=== PATIENT | female | born 1950 | race Caucasian/White ===

== ENCOUNTER 2024-02-12 15:35 | Emergency (ER) | payer OTHER, SELFPAY ==
[2024-02-12 15:38] VITALS: BP 163/93
[2024-02-12 16:17] LABS: % Basophils 0.5 % (0-2); % Eosinophils 1.5 % (0-6); % Immature Granulocytes 0.4 % (0-0.5); % Lymphocytes 17.4 % (20.5-51.1); % Neutrophils 74.2 % (42.2-75.2); Absolute Basophils 0.1 10^3/uL (0-0.2); Absolute Eosinophils 0.1 10^3/uL (0-0.7); Absolute Lymphocytes 1.7 10^3/uL (1.2-3.4); Absolute Monocytes 0.6 10^3/uL (0.1-0.6); Absolute Neutrophils 7.1 10^3/uL (1.4-6.5); Hematocrit 39.3 % (37.0-47.0); Mean Corp Hgb Conc. 33.1 g/dL (33.0-37.0); Mean Corpuscular Hgb 28.8 pg (27.0-31.0); Mean Corpuscular Volume 86.9 fL (81.0-99.0); Mean Platelet Volume 9.7 fL (7.4-10.4); Nucleated Red Blood Cells % 0 %; Platelet Count 283 10^3/uL (130-400); Red Blood Cell Count 4.52 10^6/uL (4.20-5.40); Red Cell Dist. Width 13.6 % (11.5-14.5); White Blood Cell Count 9.6 10^3/uL (4.8-10.8)
[2024-02-12 16:49] LABS: ALT (SGPT) 20 U/L (0-35); AST (SGOT) 25 U/L (14-36); Albumin 4.1 g/dl (3.5-5.0); Alkaline Phosphatase 136 U/L (38-126); Blood Urea Nitrogen 13 mg/dl (7-17); Calcium 9.2 mg/dl (8.4-10.2); Carbon Dioxide 24 mmol/L (22-30); Chloride 104 mmol/L (98-107); Glucose 109 mg/dl (70-99); Potassium 4.6 mmol/L (3.5-5.1); Sodium 141 mmol/L (135-145); Total Bilirubin 0.3 mg/dl (0.2-1.3); Total Protein 7.1 g/dl (6.3-8.2); eGFR > 60.00
--- NOTE | 2024-02-12 17:15 | ED.GENMED ---
History of Present Illness
General
Chief Complaint: Weakness
Time Seen by Provider: 02/12/24 17:14
History of Present Illness
History of Present Illness:
TIME OF INITIAL ENCOUNTER: 5:25 PM
HPI: The patient had abrupt onset of slurred speech and gait dysfunction that started yesterday afternoon. She went to [facility]. This is about the fifth time this happened to her this year. 'They never find anything'. She was kept for
observation overnight and then earlier today 'they kicked me out'. is very upset that she was released from the hospital without any clear answers. She could not even walk when she was being discharged. very upset with the care at
[facility].
EXAM:
GENERAL: Well appearing in no distress
HEENT: Moist oral mucosa
CARDIOVASCULAR: No murmurs, irregular heart rate, regular rhythm, No chest wall tenderness
PULMONARY: No respiratory distress, breath sounds are clear and equal
ABDOMEN: Soft with no peritoneal signs, no tenderness
NEUROLOGIC: Fair strength all extremities, some questionable mild right upper extremity coordination deficit with finger-nose testing, normal [id number] testing, normal lower extremity strength, ambulation was tested with a walker and she walked
without my assistance
PSYCHIATRIC: Appropriate mental status, normal insight and judgement
EXTREMITIES: Nontender, no edema, moves all extremities equally
SKIN: No rash, no lesions
NUMBER AND COMPLEXITY OF PROBLEMS ADDRESSED AT THE ENCOUNTER
� Chronic conditions affecting care: Atrial fibrillation, high blood pressure, hyperlipidemia
� Acute Exacerbation and/or Progression of Chronic Illness: This is an acute but recurring problem
� Differential Diagnosis includes: TIA, CVA,
AMOUNT AND/OR COMPLEXITY OF DATA TO BE REVIEWED AND ANALYZED
� I performed an independent evaluation of and my interpretation is:
EKG: A-fib 90, normal axis, nonspecific ST abnormality
CT: Brain CT personally reviewed and agree with radiologist interpretation
X-rays:
Laboratory Studies: CBC and chemistries unremarkable
Other:
� Review of other/old records: I reviewed records with the nurse practitioner at [facility]
� Clinical information was obtained by an independent historian: I spoke to significant other
� Prescriptions/Medications Considered but not given:
� Further testing considered but not performed:
RISK OF COMPLICATIONS AND/OR MORBIDITY OR MORTALITY OF PATIENT MANAGEMENT
� Social determinants of health affecting care: Lives at home
� Discussion with other providers: See below
� Escalation of care including admission/observation vs risk of discharge considered:
ANY OTHER UPDATES:
6:00 PM: I spoke to a nurse practitioner in the emergency department at [facility]. She tells me that the patient had an unremarkable MRI of the brain in December 2022. She had CVA type symptoms in April 2023. A stroke alert was called
yesterday as she reportedly had 'bilateral upper extremity weakness, left upper extremity ataxia' and throughout the stay at [facility], she had a CTA head and neck that was negative. She was seen by neurology but no MRI was recommended. She also
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 The significant other apparently became very upset when patient was discharged in the hospital earlier today.
7 PM: I discussed case with Dr. Coates. No clear indication for admission to the hospital as she had a recent CTA that was negative of the head neck. The patient symptoms have been intermittent for a year and she has been using a walker
intermittently for a year. Her symptoms appear to be intermittent and currently has an NIH stroke scale of 0. She has no sensory deficits. She did receive a flu vaccination today but otherwise had no other recent vaccinations. Her vital signs
are unremarkable.
Phy Exam
Physical Exam
Physical Exam:
See HPI
Course
Orders/Labs/Results
Orders:
Orders
02/12/24 15:44
Electrocardiogram (*1) Urgent
Reason for Study: Fatigue / Weakness
EKG- Treatment ONCE
02/12/24 15:46
CT Head W/o Iv Contrast Urgent
Comment: hx cva..pt having diff amb. right weaker than left
Reason For Exam: intermit slurred speech two days
02/12/24 16:06
Alcohol Urgent
Complete Blood Count/With Diff Urgent
Comprehensive Metabolic Panel Urgent
02/12/24 19:15
Add On- LAB Urgent
Tests Added?: lamictal and keppra levels; alcohol
02/12/24 19:30
Keppra (Levetiracetam) [S] Urgent
Lamotrigine (Lamictal) [S] Urgent
Abnormal Lab Results
02/12/24
16:06
Absolute Neuts (auto) 7.1 H 10^3/uL
(1.4-6.5)
Lymphocytes % 17.4 L %
(20.5-51.1)
Glucose 109 H mg/dl
(70-99)
Alkaline Phosphatase 136 H U/L
(38-126)
02/12/24 16:06
02/12/24 16:06
Vital Signs
Initial and Last Documented VS:
Initial Vital Signs
Temp Pulse Resp BP Pulse Ox
98.2 F 101 16 163/93 97
02/12/24 15:38 02/12/24 15:38 02/12/24 15:38 02/12/24 15:38 02/12/24 15:38
Last Documented Vital Signs
Temp Pulse Resp BP Pulse Ox
98.2 F 81 20 121/80 96
02/12/24 15:38 02/12/24 19:15 02/12/24 19:15 02/12/24 19:00 02/12/24 19:15
*Critical Care Note
Total Time (30-74mins, 75-104mins- exclusive of procedures): Not Applicable
ED Attending Note
-
Portions of this chart may have been created with voice recognition software.� Occasional wrong word or��sound alike� substitutions may have occurred due to the inherent limitations of voice recognition software.
Discharge Plan
Departure
Patient Disposition: Home (Routine Discharge)
Date of Disposition: 02/12/24
Time of Disposition: 19:38
Patient with high blood pressure during this ER visit?: Yes
Discharge Problem:
Ambulatory dysfunction
Referrals:
Fly,Catalina, DO [Family Provider] -
Activity Restrictions/Additional Instructions:
I spoke to the providers at [facility]. They told me that the CAT scan of the brain was normal. The CAT scan angiography of both the brain and the blood vessels in the neck showed no blood clots. Continue the Eliquis for atrial fibrillation.
Continue your other medications. We do have a Keppra and Lamictal levels that are currently pending. I recommend that you follow-up with your neurologist at [place].
Interventions
Interventions:
*Risk Screen - Suicide Last Done: 02/12/24 15:38
*Neglect/Abuse Screening Last Done: 02/12/24 15:38
ED- Neurological Assessment Last Done: 02/12/24 17:47
Discharge Date and Time
Print Language: CROATIAN
[2024-02-12 17:33] VITALS: BP 123/83
[2024-02-12 18:00] VITALS: BP 131/78
[2024-02-12 19:00] VITALS: BP 121/80
[2024-02-12 20:10] LABS: Alcohol None Detected
== END 2024-02-12 20:07 | disposition home or self-care (01) ==
LOC: EMR 15:35
PROVIDERS: EMERGENCY PHYSICIAN Emergency Medicine; FAMILY PHYSICIAN Internal Medicine
DX: R26.2 Difficulty in walking, not elsewhere classified (principal); I48.91 Unspecified atrial fibrillation; R03.0 Elevated blood-pressure reading, without diagnosis of hypertension; Z79.01 Long term (current) use of anticoagulants
CPT/HCPCS: 99285; 70450; 80053; 80175; 80177; 82077; 85025; 93005